=== PATIENT | female | born 1975 | race Caucasian/White ===

== ENCOUNTER → 2019-02-03 14:53 | Outpatient (CLI) | payer MEDICAID, SELFPAY ==
[2019-02-03 14:40] VITALS: BMI 21.8
--- NOTE | 2019-02-03 14:57 | RAD_ITS ---
STUDY: X-RAY CHEST REASON FOR EXAM: Female, 43 years old. Cough. Cold like symptoms. TECHNIQUE: PA and lateral views of the chest. COMPARISON: None. FINDINGS: Increased markings at the lung bases slightly worse on the right side suggestive of bibasilar infiltrates. There is no demonstrated pleural abnormality. Normal size heart. Normal mediastinum and mirian. Normal visualized pulmonary arteries. Normal visualized aortic arch and descending thoracic aorta. Normal visualized thoracic spine. Normal visualized ribs, clavicles, and shoulders. There is no demonstrated abnormality of the visualized soft tissue structures of the upper abdomen. RAD/Chest PA and Lateral IMPRESSION: Bibasilar infiltrates. Electronically Signed: Amol Christianson, at 15:28 EDT , Service support ,
== END ==
PROVIDERS: Family Provider Student in an Organized Health Care Education/Training Program; PCP Student in an Organized Health Care Education/Training Program; Referring Provider Physician Assistant Surgical; Visit Provider Physician Assistant Surgical
DX: R05 Cough (principal)
CPT/HCPCS: 71046

== ENCOUNTER → 2019-02-04 14:24 | Outpatient (CLI) | payer MEDICAID, SELFPAY ==
[2019-02-03 15:13] VITALS: BMI 21.8
[2019-02-04 15:14] LABS: Color, Urine Amber (Yellow); Glucose, Dipstick Normal (Normal); Ketone-Dipstick 5 mg/dl (Negative); Leukocyte Esterase-Dipstick 500 /ul (Negative); Nitrite-Dipstick Positive (Negative); Occult Blood-Urine 10 /ul (Negative); Protein-Dipstick 30 mg/dl (Negative); Specific Gravity, Urine 1.015 (1.002-1.030); Urine Clarity Cloudy (Clear); Urine Urobilinogen 4 mg/dl (Normal)
[2019-02-04 15:22] LABS: Urine Bilirubin Dipstick 1 mg/dL (Negative)
[2019-02-04 15:51] LABS: Red Blood Cells-Urine 0-5 SEEN /hpf (0-5); Squamous Epithelial Cells - UA 25-50 SEEN /hpf (5-10); White Blood Cells 50-100 SEEN /hpf (0-5)
[2019-02-04 15:52] LABS: Bacteria 3+ /hpf (None Seen); Calcium Oxalate Crystals Ur 1+ /hpf (<or=2+); Mucous, Urine 1+ /hpf (<or=2+)
== END ==
PROVIDERS: Family Provider Student in an Organized Health Care Education/Training Program; PCP Student in an Organized Health Care Education/Training Program; Referring Provider Physician Assistant Surgical; Visit Provider Physician Assistant Surgical
DX: N30.01 Acute cystitis with hematuria (principal); R30.0 Dysuria
CPT/HCPCS: 81001; 87077; 87086; 87088; 87186

== ENCOUNTER 2019-05-16 22:10 | Emergency (ER) | payer MEDICAID, SELFPAY ==
[2019-03-25 09:32] VITALS: BMI 21.8
[2019-05-16 22:11] VITALS: BP 149/95; PULSE 101; RESP 15; TEMP 36.7; O2SAT 98; BMI 20.9
--- NOTE | 2019-05-16 22:32 | NURSING ---
CALLED CRISIS AT [phone]
--- NOTE | 2019-05-16 22:35 | ED.RN ---
PER DR SORIANO, NO SITTER NEEDED AT THIS TIME
[2019-05-16 22:38] LABS: Absolute Lymphocyte Count 1.91 X10^3/uL (0.83-4.51); Absolute Neutrophil Count 3.8 X10^3/uL (2.0-7.7); Basophil# 0.08 X10^3/uL; Basophil% 1.2 % (0-1); Eosinophil# 0.18 X10^3/uL; Eosinophils% 2.7 % (0-5); Hematocrit 41.9 % (37-47); Hemoglobin 13.8 g/dL (12.0-15.0); Lymphocyte # 1.91 X10^3/ul (4.0); Lymphocyte % 28.9 % (19-41); Mean Corp Hgb Conc 32.9 g/dL (32-36); Mean Corpuscular Hgb 30.6 pg (27.0-32.0); Mean Corpuscular Volume 92.9 fL (81-99); Mean Platelet Vol. 9.2 fl (6.2-12.0); Monocyte% 9.1 % (0-10); NRBC Flagged by Analyzer 0 % (0-5); Neutrophil # 3.81 X10^3/uL (2.7-7.7); Neutrophil % 57.8 % (47-70); Platelet Count 324 K/mm3 (150-450); RBC Distribution Width CV 12.1 % (11.6-14.6); RBC Distribution Width SD 41.6 fl (35.1-43.9); Red Blood Count 4.51 M/mm3 (4.2-5.4); White Blood Count 6.6 K/mm3 (4.4-11.0)
[2019-05-16 22:56] LABS: Internal QC Validated? YES +Cl - CLEAR BKGD
[2019-05-16 23:03] LABS: Pregnancy, Serum, hCG Quali. NEGATIVE Negative
[2019-05-16 23:03] LABS: Anion Gap 6 (5-15); BUN 14 mg/dL (7-18); BUN/Creat Ratio 18.7 RATIO (10-20); Chloride 109 mmol/L (98-107); Creatinine, Serum 0.75 mg/dL (0.55-1.02); EST Glomerular Filtration Rate 90 mL/min (>60); Est Glom Filt Rate - Afr Amer 109 mL/min (>60); Estimated Creatinine Clearance 91.89 ml/min; Glucose 102 mg/dL (74-106); Potassium 3.5 mmol/L (3.5-5.1); Sodium Level 142 mmol/L (136-145)
[2019-05-16 23:05] LABS: Alcohol, Blood (Medical)-Serum < 3.0 mg/dL
[2019-05-16 23:13] VITALS: RESP 16
[2019-05-16 23:15] LABS: Amphetamine Urine VISTA POSITIVE (<1000 ng/mL); Barbiturate Urine VISTA NEGATIVE (< 200 ng/mL); Benzodiazepine Urine VISTA NEGATIVE (< 200 ng/mL); Cocaine Urine VISTA NEGATIVE (< 300 ng/mL); Ecstacy Urine VISTA POSITIVE (< 500 ng/mL); Methadone Urine VISTA NEGATIVE (< 300 ng/mL); PCP Urine VISTA NEGATIVE (< 25 ng/mL); THC Urine VISTA NEGATIVE (< 50 ng/mL); Vista UDS pH Range 6
[2019-05-17 00:31] VITALS: RESP 16
--- NOTE | 2019-05-17 03:11 | ED.VISSUMM ---
- ER Visit Summary Date of Service: 05/17/19 Chief Complaint: Depressed but I am not suicidal History of Present Illness: The patient is a 43 F history of depression and anxiety. Recently broke up with her significant other and is depressed from that. There is also family issues. Her daughter also suffers from depression and was being cared for by family members but now she is back in her home. Patient denies being suicidal. Reportedly her daughter thought she was suicidal and called the police. We spoke to family who stated that the daughter is done this to her before and they felt comfortable patient being discharged home. Physical Examination: Well-appearing middle-aged female. No acute distress. Vital signs are stable. She is afebrile. She does not look septic or toxic. She is no acute distress. H EENT exam unremarkable. Neck nontender no lymphadenopathy. Lungs clear to auscultation bilaterally. Heart regular rhythm no murmur. Abdomen soft nontender. Remedies moves all 4. No signs of trauma. No track burnette. She does have tattoos. No edema. Neurologically she is awake alert with no focal motor deficits. Test Results: CBC normal. White count of 6. Normal hemoglobin. Electrolytes unremarkable normal creatinine and gap. Serum test negative. Alcohol negative. Tox screen positive for meth and amphetamines. Emergency Department Course and Treatment: Patient states she is not suicidal. Crisis doctor for a lengthy period time and also called family who told her sister with the daughter often overreacts or makes the story much worse than it was actually happening and this is occurred before. Treatment Plan: Both myself and counseling center personnel felt comfortable with her being discharged home. She has an appointment to see them later this week. Disposition: Discharge Impression: Acute on chronic depression Anxiety This note was generated with [employer] software. It may contain incorrect words, spelling, and punctuation that were not noted in review of the chart prior to signing ED Disposition - Plan for ED Patient: Referrals: Care Physician,No Primary [Primary Care Provider] -
--- NOTE | 2019-05-17 03:16 | ED.DEP ---
ED Disposition - Plan for ED Patient: Disposition: Home or Assisted Living Instructions: Depression Referrals: Counseling,Center [GROUP OF PHYSICIANS] - Keep [facility] appointment Additional Instructions: Follow-up with the counseling center this week. Return to the ER if you are feeling worse or suicidal.
== END 2019-05-17 03:16 | disposition home or self-care (01) ==
PROVIDERS: Emergency Provider Emergency Medicine
DX: F32.9 Major depressive disorder, single episode, unspecified (principal); F41.9 Anxiety disorder, unspecified; Z79.899 Other long term (current) drug therapy; F15.90 Other stimulant use, unspecified, uncomplicated; Z72.0 Tobacco use
CPT/HCPCS: 36415; 80048; 80307; 80320; 84703; 85025; 99283; G0480